=== PATIENT | female | born 1955 | race Caucasian/White ===

== ENCOUNTER 2025-03-27 06:49 | Day surgery (SDC) | payer BC ==
[2025-03-23 10:16] LABS: Absolute Lymphocytes (CBC) 1.2 K/uL (0.7-4.9); Hematocrit 38.0 % (36.0-45.0); Hemoglobin 12.1 g/dL (12.0-15.0); MCH 30.1 pg (27.0-35.0); MCHC 32.0 g/dL (32.0-36.0); MCV 94.0 fL (80-100); MPV 9.3 fL (7.6-11.3); Nucleated RBC Absolute Count 0.0 (0-0); Nucleated Red Blood Cells % 0.0 % (0-0); RBC Red Blood Cell Count 4.04 M/uL (3.86-4.86); White Blood Count 3.30 thou/uL (4.3-10.9)
[2025-03-23 10:23] LABS: PT Prothrombin Time 10.8 SECONDS (10-13.0); PTT, Activated Partial Thromb 34.5 SECONDS (27.2-37.4); Protime INR 0.95
[2025-03-23 10:27] LABS: Anion Gap 9.5 mEq/L (5.0-15.0); BUN Blood Urea Nitrogen 37.0 mg/dL (7-18); Glucose Level 89.0 mg/dL (74-106); Potassium 5.5 mEq/L (3.5-5.1)
--- NOTE | 2025-03-23 11:02 | RAD REPORT ---
EXAMINATION: TWO VIEW CHEST XR CLINICAL INDICATION: pre procedure TECHNIQUE: 2 views of the chest was performed. COMPARISON: No prior exam. FINDINGS: Hyperexpanded lungs are present compatible with COPD. The heart is mildly enlarged in size. Small hia jacinto hernia. No displaced fractures evident. IMPRESSION: Prominent diffuse COPD. The USPSTF recommends annual screening for lung cancer with low-dose computed tomography (LDCT) in ad ults aged 50 to 80 years who have a 20 pack-year smoking history and currently smoke or have quit within the past 15 years. Screening should be discontinued once a person has not smoked for 15 years or develops a health problem that substantially limits life expectancy or the ability or willingness to have curative lung surgery.
[2025-03-27] MEDS ORDERED: NA CHLORIDE 0.9% 500 ML ONE (06:52)
[2025-03-27] MEDS ORDERED: HEPA 1000U/500MLS 2,000 UNIT/1,000 ML BAG IV ONE (07:03)
[2025-03-27] MEDS ORDERED: LIDOCAINE 1% 20 ML MDV ONE (07:03)
[2025-03-27] MEDS ORDERED: FENTANYL CITR 100 MCG/2 ML ONE (07:20)
[2025-03-27] MEDS ORDERED: MIDAZOLAM HCL 2 MG/2 ML INJ ONE (07:21)
[2025-03-27 08:38] VITALS: TEMP 98.4
[2025-03-27 10:15] VITALS: BP 112/54; O2SAT 98
--- NOTE | 2025-03-27 17:45 | OP ---
Date of Procedure: 03/27/2025 Surgeon: MARIAJOSE WESTBROOK Procedure Performed: Bilateral selective renal angiogram. Indication: Renal artery stenosis on CT scan plus chronic kidney disease. Access: Right common femoral artery 5-Argentine closed with 5-Argentine Mynx closure device. Complications: None. Bleeding: Less than 50 mL. Total Sedation Time: 45 minutes, used fentanyl and Versed. Description Of Procedure: After risks, benefits, and alternatives were explained, the patient agreed to procedure and signed informed consent. The [facility] was [facility], prepped and draped in the usual sterile fashion. Then, I accessed right common femoral arter y using micropuncture kit, ultrasound guidance, and fluoroscopy, placed 5-Argentine [place] sheath and took a 4-Argentine IM catheter into the abdominal aorta, engaged the right renal artery, took standard v iews, and then in the left renal artery, took standard views, and then removed the catheter and the s mame and 5-Argentine Mynx closure device was used for closure with good hemostasis. The patient sent t o recovery room in stable condition. Total amount of contrast used is 10 cc. Findings: 1. Right renal artery. There is about 20% stenosis proximally. Rest of it is normal. 2. Left renal artery is entirely normal. Conclusion: Very mild right renal artery stenosis about 20%. Recommendation: Medical management. /MODL Voice ID: [id number] Report ID: [id number]
== END 2025-03-27 10:23 | disposition home or self-care (01) ==
LOC: CCL 06:49
PROVIDERS: ATTEND Internal Medicine
PROC: B4171ZZ Fluoroscopy of Left Renal Artery using Low Osmolar Contrast (ICD-10-PCS; principal; 2025-03-27)
PROC: B4161ZZ Fluoroscopy of Right Renal Artery using Low Osmolar Contrast (ICD-10-PCS; 2025-03-27)
DX: I70.1 Atherosclerosis of renal artery (principal); I12.9 Hypertensive chronic kidney disease with stage 1 through stage 4 chronic kidney disease, or unspecified chronic kidney disease; N18.9 Chronic kidney disease, unspecified; E78.5 Hyperlipidemia, unspecified; Z87.891 Personal history of nicotine dependence; Z82.49 Family history of ischemic heart disease and other diseases of the circulatory system
CPT/HCPCS: 36252; 36415; 71046; 76937; 80048; 85025; 85610; 85730; 93005; 99152; 99153; C1760; C1893; J1644; J2003; J2250; J3010; J7040; Q9966